=== PATIENT | male | born 1945 | race Caucasian/White ===

== ENCOUNTER 2022-04-08 10:45 | Inpatient (IN) | payer MEDICARE ==
[~2022-04-08] VITALS: Ht 175.3 cm; Wt 73.0 kg
[2022-04-08 11:35] LABS: HEMOGLOBIN 13.9 gm/dl (14.0-17.5); RED BLOOD COUNT 5.56 M/UL (4.20-5.50)
[2022-04-08 13:07] LABS: BORDETELLA PARAPERTUSSIS Not Detected (Not Detectd); BORDETELLA PERTUSSIS Not Detected (Not Detectd); CHLAMYDIA PNEUMONIAE Not Detected (Not Detectd); CORONAVIRUS HKU1 Not Detected (Not Detectd); CORONAVIRUS NL63 Not Detected (Not Detectd); CORONAVIRUS OC43 Not Detected (Not Detectd); CORONOAVIRUS 229E Not Detected (Not Detectd); HUMAN METAPNEUMOVIRUS Not Detected (Not Detectd); HUMAN RHINOVIRUS/ENTEROVIRUS Not Detected (Not Detectd); INFLUENZA A Not Detected (Not Detectd); INFLUENZA B Not Detected (Not Detectd); MYCOPLASMA PNEUMONIAE Not Detected (Not Detectd); PARAINFLUENZA VIRUS 1 Not Detected (Not Detectd); PARAINFLUENZA VIRUS 2 Not Detected (Not Detectd); PARAINFLUENZA VIRUS 3 Not Detected (Not Detectd); PARAINFLUENZA VIRUS 4 Not Detected (Not Detectd); RESPIRATORY SYNCYTIAL VIRUS Not Detected (Not Detectd)
[2022-04-08] MEDS ORDERED: PROAIR HFA8.5 GM INH (13:58)
[2022-04-08] MEDS ORDERED: ELIQUIS5 MG PO (13:58)
[2022-04-08] MEDS ORDERED: BUMETANIDE1 MG PO (13:59)
[2022-04-08] MEDS ORDERED: ATORVASTATIN CA40 MG PO (13:59)
[2022-04-08] MEDS ORDERED: ADVAIR 250-501 EACH INH (14:00)
[2022-04-08] MEDS ORDERED: DOXEPIN HCL100 MG PO (14:00)
[2022-04-08] MEDS ORDERED: GABAPENTIN100 MG PO (14:01)
[2022-04-08] MEDS ORDERED: ISOSORBIDE MONO30 MG PO (14:02)
[2022-04-08] MEDS ORDERED: PROTONIX40 MG PO (14:03)
[2022-04-08] MEDS ORDERED: METOPROLOL TART25 MG PO (14:03)
[2022-04-08] MEDS ORDERED: MAGNESIUM OXID420 MG PO (14:03)
[2022-04-08] MEDS ORDERED: SPIRIVA RESPIMAT4 GM INH (14:04)
[2022-04-08] MEDS ORDERED: ZOLOFT100 MG PO (14:04)
[2022-04-08 14:07] LABS: SARS-CoV-2 NOT DETECTED (Not Detectd)
== END 2022-04-08 16:05 | disposition expired | DRG 175 ==
LOC: ER1 10:45 → CDU 13:29
PROVIDERS: Physician Assistant; ADMIT Internal Medicine
PROC: 5A0935A Assistance with Respiratory Ventilation, Less than 24 Consecutive Hours, High Flow/Velocity Cannula (ICD-10-PCS; principal; 2022-04-08)
PROC: 3E033XZ Introduction of Vasopressor into Peripheral Vein, Percutaneous Approach (ICD-10-PCS; 2022-04-08)
PROC: 5A12012 Performance of Cardiac Output, Single, Manual (ICD-10-PCS; 2022-04-08)
DX: I26.99 Other pulmonary embolism without acute cor pulmonale (principal); J69.0 Pneumonitis due to inhalation of food and vomit; J96.11 Chronic respiratory failure with hypoxia; I13.0 Hypertensive heart and chronic kidney disease with heart failure and stage 1 through stage 4 chronic kidney disease, or unspecified chronic kidney disease; I46.8 Cardiac arrest due to other underlying condition; N18.9 Chronic kidney disease, unspecified; I50.9 Heart failure, unspecified; Z66 Do not resuscitate; E87.5 Hyperkalemia; I49.01 Ventricular fibrillation; J44.9 Chronic obstructive pulmonary disease, unspecified; E78.5 Hyperlipidemia, unspecified; Z79.899 Other long term (current) drug therapy
CPT/HCPCS: 31500; 36600; 70450; 71045; 80053; 81001; 82550; 82553; 82803; 83605; 83880; 84484; 85025; 85610; 85730; 87040; 87633; 92950; 93005; 94640; 94664; 94760; 99285; J0171; J0696; J1265; J2930; J7070; Q9967